=== PATIENT | female | born 1965 | race Caucasian/White ===

== ENCOUNTER 2020-07-13 23:59 | Observation (INO) | payer OTHER, MEDICARE ==
[~2020-07-13] VITALS: Ht 162.6 cm; Wt 117.7 kg
[2020-07-14 01:45] LABS: BASOPHILS ABSOLUTE AUTO 0.06 K/mm3 (0.00-0.23); BASOPHILS PERCENT AUTO 0 % (0-2); EOSINOPHILS ABSOLUTE AUTO 0.01 K/mm3 (0.00-0.68); EOSINOPHILS PERCENT AUTO 0 % (0-6); Hematocrit 40.9 % (33.0-51.0); Hemoglobin 13.5 g/dL (11.5-16.0); IMMATURE GRAN ABSOLUTE AUTO 0.31 K/mm3 (0.00-0.10); IMMATURE GRAN PERCENT AUTO 2 % (0-1); LYMPHOCYTES ABSOLUTE AUTO 4.49 K/mm3 (0.84-5.20); LYMPHOCYTES PERCENT AUTO 31 % (21-46); MONOCYTES ABSOLUTE AUTO 0.89 K/mm3 (0.16-1.47); MONOCYTES PERCENT AUTO 6 % (4-13); Mean Corpuscular HGB 30.8 pg (26.0-34.0); Mean Corpuscular Volume 93 fL (80-100); Mean Platelet Volume 10.7 fL (9.1-12.4); NEUTROPHILS ABSOLUTE AUTO 8.59 K/mm3 (1.96-9.15); NEUTROPHILS PERCENT AUTO 60 % (41-73); Platelet Count 232 K/mm3 (150-400); RDW Coefficient Variation 18.5 % (11.7-14.2); Red Blood Cell Count 4.38 M/mm3 (3.80-5.20); White Blood Cell Count 14.35 K/mm3 (4.00-11.30)
[2020-07-14 01:46] LABS: Alanine Aminotransfer (ALT/SGP 56 U/L (12-78); Albumin, Blood 2.5 g/dL (3.4-5.0); Albumin/Globulin Ratio 0.7 (0.8-1.8); Alk Phos 56 U/L (50-136); Anion Gap 4 mmol/L (6-16); Aspartate Aminotrans (AST/SGOT 46 U/L (12-37); Bilirubin, Total 0.4 mg/dL (0.1-1.0); Blood Urea Nitrogen 29 mg/dL (8-24); Bun/Creatinine Ratio 61.8 (12.0-20.0); CO2, Blood 33 mmol/L (21-32); Chloride, Blood 101 mmol/L (98-108); Creatinine, Blood 0.47 mg/dL (0.40-1.00); Ethanol (Alcohol), Blood, Med <3 mg/dL; Globulin, Blood 3.8 g/dL (2.2-4.0); Glomerular Filtration Rate >60 (60-); Glucose, Blood 127 mg/dL (70-99); Potassium, Blood 4.8 mmol/L (3.5-5.5); Salicylate <1.7 mg/dL (2.8-20.0); Sodium, Blood 138 mmol/L (136-145); Total Protein, Blood 6.3 g/dL (6.4-8.2)
[2020-07-14 01:48] LABS: Acetaminophen, Random <2.0 ug/mL (10.0-30.0)
[2020-07-14] MEDS ORDERED: CYCL10 PO (03:00)
[2020-07-14] MEDS ORDERED: GABA300 PO (03:01)
[2020-07-14] MEDS ORDERED: Hair, Skin & N1 EACH PO (03:01)
[2020-07-14] MEDS ORDERED: PYRI100 PO (03:01)
[2020-07-14] MEDS ORDERED: B-1100 MG PO (03:02)
[2020-07-14] MEDS ORDERED: TORSE20 PO (03:02)
[2020-07-14 04:09] LABS: Source, Urine Clean Catch
[2020-07-14 04:21] LABS: Appearance, Urine Clear (Clear); Bilirubin, Urine Neg (Neg); Blood, Urine 1+ (Neg); Color, Urine Yellow (P-Yellow); Glucose Qualitative, Urine Neg (Neg); Ketones, Urine Neg (Neg); Leukocyte Esterase, Urine 2+ (Neg); Nitrite, Urine Neg (Neg); Protein, Urine Neg (Neg); Urobilinogen, Urine 1+ (Normal)
[2020-07-14 04:22] LABS: Bacteria Few /hpf; Red Blood Cells, Urine 0-2 /hpf (0-2); Squamous Epithelial Cells Mod /hpf (Few)
[2020-07-14 04:23] LABS: Other Crystals Few /hpf
--- NOTE | 2020-07-14 04:26 | NUR ---
SHIFT ADMIT ASSESSMENT PT ARRIVED TO UNIT VIA GURNEY. SHE WAS SLID OVER TO ICU BED WITH NO ISSUES. PT IS VERY PLESANT AND COOPERATIVE WITH HER CARE. SHE IS ABLE TO ANSWER ALL THIS RN'S QUESTIONS TO ADMIT HER TO ICU. SHE SEEMS TO BE ANXIOUS ABOUT HER STAY AND THIS RN ANSWERED ALL HER QUESTIONS REGARDING HER CARE. VITALS ARE STABLE. PT IS ON 3L N/C WITH OXYGEN SATS AT 95%. SHE DOES SEEM SOB AT REST AND HER LUNGS SOUND TIGHT T/O. SHE STATES IT IS A LITTLE HARD TO BREATHE. WILL CON'T TO MONITOR. PT STOOD TO [facility] AND SATES SHE DOES NOT FEEL DIZZY BUT DOES FEEL WEAK AND SHAKY. TWO PERIPHERAL IV'S ESTABLISHED AT THIS TIME. PT TOLERATED IV START WELL. LIBRIUM WAS GIVEN AT THIS TIME. WILL GIVE ATIVAN NEEDED T/O REMAINDER OF SHIFT FOR ANXIETY. THIS RN CALLED PT'S BOYFRIEND REQESTED TO GIVE HIM AN UPDATE. PT WAS ORIENTED TO CALL LIGHT SYSTEM. BED IN LOW POSITION. WILL CON'T TO MONITOR AND KEEP PT SAFE T/O REMAINDER OF SHIFT.
[2020-07-14 04:27] LABS: U Amphetamine Screen Not Detected; U Barbituate Screen Not Detected; U Benzodiazapine Screen DETECTED; U Buprenorphine Screen Not Detected; U Cannabinoids Screen Not Detected; U Cocaine Screen Not Detected; U Methadone Screen Not Detected; U Methamphetamine Screen Not Detected; U Opiates Screen Not Detected; U Oxycodone Screen Not Detected; U Phencyclidine Screen Not Detected; U Propoxyphene Screen Not Detected
--- NOTE | 2020-07-14 05:37 | NUR ---
DR ANGELA MILLER HERE TO ASSESS PT. WILL IMPLEMENT ANY NEW ORDERS. ATIVAN IV WAS GIVEN JUST PRIOR TO HIS ARRIVAL. PT SATES SHE IS FEELING ANXIOUS.
[2020-07-14 08:00] LABS: BASOPHILS ABSOLUTE AUTO 0.08 K/mm3 (0.00-0.23); BASOPHILS PERCENT AUTO 1 % (0-2); EOSINOPHILS ABSOLUTE AUTO 0.03 K/mm3 (0.00-0.68); EOSINOPHILS PERCENT AUTO 0 % (0-6); Hematocrit 42.3 % (33.0-51.0); Hemoglobin 13.5 g/dL (11.5-16.0); IMMATURE GRAN ABSOLUTE AUTO 0.24 K/mm3 (0.00-0.10); IMMATURE GRAN PERCENT AUTO 2 % (0-1); LYMPHOCYTES ABSOLUTE AUTO 6.31 K/mm3 (0.84-5.20); LYMPHOCYTES PERCENT AUTO 46 % (21-46); MONOCYTES ABSOLUTE AUTO 0.82 K/mm3 (0.16-1.47); MONOCYTES PERCENT AUTO 6 % (4-13); Mean Corpuscular HGB 30.1 pg (26.0-34.0); Mean Corpuscular HGB Conc 31.9 g/dL (31.5-36.5); Mean Corpuscular Volume 94 fL (80-100); Mean Platelet Volume 10.1 fL (9.1-12.4); NEUTROPHILS ABSOLUTE AUTO 6.24 K/mm3 (1.96-9.15); NEUTROPHILS PERCENT AUTO 46 % (41-73); Platelet Count 217 K/mm3 (150-400); RDW Coefficient Variation 18.5 % (11.7-14.2); RDW Standard Deviation 62.8 fL (35.1-46.3); Red Blood Cell Count 4.49 M/mm3 (3.80-5.20); White Blood Cell Count 13.72 K/mm3 (4.00-11.30)
[2020-07-14 08:30] LABS: Alanine Aminotransfer (ALT/SGP 55 U/L (12-78); Albumin, Blood 2.5 g/dL (3.4-5.0); Albumin/Globulin Ratio 0.7 (0.8-1.8); Alk Phos 49 U/L (50-136); Anion Gap 7 mmol/L (6-16); Aspartate Aminotrans (AST/SGOT 33 U/L (12-37); Bilirubin, Total 0.3 mg/dL (0.1-1.0); Blood Urea Nitrogen 24 mg/dL (8-24); Bun/Creatinine Ratio 46.7 (12.0-20.0); CO2, Blood 32 mmol/L (21-32); Calcium, Blood 8.8 mg/dL (8.5-10.1); Chloride, Blood 104 mmol/L (98-108); Creatinine, Blood 0.51 mg/dL (0.40-1.00); Globulin, Blood 3.5 g/dL (2.2-4.0); Glomerular Filtration Rate >60 (60-); Glucose, Blood 131 mg/dL (70-99); Potassium, Blood 3.9 mmol/L (3.5-5.5); Sodium, Blood 143 mmol/L (136-145)
--- NOTE | 2020-07-14 09:00 | NUR ---
ASSESSMENT- PT AWAKE, ALERT, COOPERATIVE. C/O ANXIETY-RATES UP TO LEVEL 8 ON SCALE 0-10. CIWA 16, NOTICEABLE TREMORS AND C/O AUDITORY AND VISUAL HALLUCINATIONS. ABLE TO ANSWER QUESTIONS, EAT SMALL AMOUNT BREAKFAST. NSR, BP STABLE. DR. COLLINS HERE-UPDATED. NO N/V. UP TO COMMODE TO VOID. FALL PRECAUTIONS, REVIEWED NEED FOR USE OF CALL LIGHT, BED ALARM ON. STATES UNDERSTANDING. DYSPNEIC WITH ACTIVITY, STATES PRETTY NORMAL FOR HER. OXYGEN AT 3 L/MIN NC, LUNGS COARSE. IV BANANA BAG INFUSING VIA RIGHT WRIST-INTACT. PIV LEFT HAND DI. RX WITH ATIVAN WITH IMPROVEMENT OF ANXIETY-NOW DOZING. WILL MONITOR
--- NOTE | 2020-07-14 10:48 | NUR ---
PT WITH INCREASED CIWA, C/O ANXIETY, DISTRESSING HALLUCINATIONS. RX GIVEN-LIBRIUM AND ATIVAN. EXPLAINED PLAN OF CARE
--- NOTE | 2020-07-14 11:30 | NUR ---
ABLE TO REST, CALM, COOPERATIVE. POWER GLIDE BEING PLACED BY Morgan SYED RN
--- NOTE | 2020-07-14 12:17 | NUR ---
PT C/O INCREASED ANXIETY, MULTIPLE QUESTIONS REGARDING POSSIBLE SEIZURES, WITHDRAWAL. UP TO BEDSIDE COMMODE WITH STANDBY ASSIST, TOLERATED WELL, BREATHING EASIER. ATE 100% LUNCH. CIWA SCALE INCREASED TO 28 WITH TREMORS, REPORTS OF ANXIETY. RX GIVEN.
--- NOTE | 2020-07-14 14:24 | NUR ---
PT C/O ANXIETY, REQUESTING RX. VSS. LIBRIUM GIVEN. PICKING AT MONITOR LINES, EXPLAINED PLAN OF CARE, STATES UNDERSTANDING
--- NOTE | 2020-07-14 14:46 | NUR ---
UPDATE TO DR. PALMA-PT CONTINUES TO COMPLAIN OF CHEST PAIN, UNCHANGED TODAY. CANNOT HAVE NITRATES FOR 24 HOURS BEFORE LOLA SCAN, NTG PASTE OFF. CAN HAVE NTG SL IF NEEDED-BUT NOT FOR 4 HOURS BEFORE TEST. PT STATES NTG DOES NOT DECREASE ANY PAIN. UP TO TOILET WITHOUT PROBLEMS. VSS. SKIN W/D, PT STATES SHE IS VERY QUIET REGARDING HER DISCOMFORT. REFUSES AM CARES
--- NOTE | 2020-07-14 16:30 | NUR ---
PT HAS BEEN ABLE TO REST AT INTERVALS. WHEN AWAKE, C/O ANXIETY, WITHDRAWALS, HALLUCINATIONS. REVIEWED PLAN OF CARE WITH PT. RESTING NOW
--- NOTE | 2020-07-14 18:00 | NUR ---
ATE 100% DINNER. VSS. CALM, COOPERATIVE. CONTINUE TO MONITOR
--- NOTE | 2020-07-14 19:53 | NUR ---
ASSUMPTION OF CARE PT RESTING IN BED, AROUSES TO VERBAL STIMULI, ORIENTED TO SELF, YEAR AND FOLLOWING DIRECTIONS, WHEN ASKED ABOUT LOCATION PT STS SHE IS "IN HELL" BUT DOES NOT ELABORATE. PT ON 2L PER NC, MONITOR SHOWS SINUS RHYTHM WITH HR 80'S, MILD HTN NOTED. PT QUICKLY FALLS ASLEEP WHEN STAFF IS NOT IN ROOM. REPORT CALLED TO TANIA COUNTER PERSON.
--- NOTE | 2020-07-14 20:30 | NUR ---
PT TRANSPORTED VIA HOSPITAL BED TO PCU 10
--- NOTE | 2020-07-14 20:43 | NUR ---
ASSUMED CARE RECEIVED REPORT FROM FREDY RN AND PT TRANSFERED FROM ICU TO PCU 10; PT A&O X4; STOOD AND TRANSFERED SELF TO BED; PT REQUESTING SNACKS; NO DISTRESS NOTED; DENIES CHEST PAIN; SANDWICH AND PO FLUIDS BROUGHT TO PT; PT ORIENTED TO ROOM AND CALL LIGHT SYSTEM; EDUCATION PROVIDED FOR FRP; SKID FREE SOCKS PLACED; BED ALARM ON; PT STATES SHE IS SHAKEY AND FEELING AGGITATED; TELE MONITOR PLACED; PT IS IN NSR HR 87 NOTED; CALL LIGHT IN PLACE; BED IN LOWEST POSITION; BED ALARM ON.
--- NOTE | 2020-07-15 04:59 | NUR ---
SHIFT SUMMARY PT A&O X 2-3; PT REQUESTING ATIVAN FREQUENTLY; PT REPORT CHRONIC ALCOHOL AND NICOTINE ADDICTIONS; DENIES CHEST PAIN; VSS; NSR NOTED ON TELE; O2 SATS >93 ON 2L NC; WEARS BIPAP AFTER ENCOURAGEMENT WHEN SLEEPING; ANSWERS APPROPRIATELY; SBA TO BSC; ABLE TO PULL SELF UP IN THE BED; EDUCATED ON PT SAFETY; CALL LIGHT IN REACH; BED IN LOWEST POSITION; BED ALARM ON; WILL CONTINUE TO MONITOR CLOSELY UNTIL HAND OFF TO DAY SHIFT RN.
[2020-07-15 05:28] LABS: Anion Gap 4 mmol/L (6-16); Blood Urea Nitrogen 24 mg/dL (8-24); CO2, Blood 32 mmol/L (21-32); Calcium, Blood 8.6 mg/dL (8.5-10.1); Chloride, Blood 105 mmol/L (98-108); Creatinine, Blood 0.57 mg/dL (0.40-1.00); Glomerular Filtration Rate >60 (60-); Glucose, Blood 128 mg/dL (70-99); Magnesium, Blood 1.9 mg/dL (1.6-2.4); Phosphorus, Blood 3.5 mg/dL (2.5-4.9); Potassium, Blood 4.6 mmol/L (3.5-5.5); Sodium, Blood 141 mmol/L (136-145)
--- NOTE | 2020-07-15 07:38 | NUR ---
ASSUMED PATIENT CARE. PATIENT RESTING COMFORTABLY IN BED, CONVERSING WITH NURSING STAFF. NO SIGNS OF ACUTE DISTRESS, WCTM.
--- NOTE | 2020-07-15 14:18 | NUR ---
PATIENT PROVIDED DISCHARGE INFO REGARDING REASONS TO RETURN TO THE HOSPITAL AND FOLLOW UP PLANS. PATIENT ENDORSED UNDERSTANDING, NO SIGNS OF ACUTE DISTRESS NTOED.
== END 2020-07-15 14:20 | disposition home or self-care (01) ==
LOC: ER 23:59 → ICUE 07-14 00:01 → ICUW 07-14 00:01 → ICUE 07-14 01:37 → ICUW 07-14 01:37 → ER 07-14 01:37 → ICUE 07-14 03:20 → ICUW 07-14 03:20 → ICUE 07-14 04:07 → PCU 07-14 20:31
PROVIDERS: Emergency Medicine; Internal Medicine; ADMIT Internal Medicine
DX: F10.239 Alcohol dependence with withdrawal, unspecified (principal); Y90.0 Blood alcohol level of less than 20 mg/100 ml; I11.0 Hypertensive heart disease with heart failure; I50.9 Heart failure, unspecified; J44.9 Chronic obstructive pulmonary disease, unspecified; E11.9 Type 2 diabetes mellitus without complications; Z79.899 Other long term (current) drug therapy; F17.210 Nicotine dependence, cigarettes, uncomplicated; R19.7 Diarrhea, unspecified
CPT/HCPCS: 36415; 80048; 80053; 81001; 81025; 82947; 83735; 84100; 85025; 87086; 94640; 94660; 94762; 96365; 96366; 96372; 96374; 96375; 96376; 99285-25; A9270-GY; C1751; G0378; G0480; J1650; J2060; J2405; J3411; J3475; J7042

== ENCOUNTER 2022-05-25 17:55 | Inpatient (IN) | payer OTHER ==
[~2022-05-25] VITALS: Ht 160 cm; Wt 99.8 kg
[~2022-05-25 17:55] MED LIST: B-1100 MG PO; CYCL10 PO; GABA300 PO; Hair, Skin & N1 EACH PO; PYRI100 PO; TORSE20 PO
[2022-05-25] MEDS ORDERED: QUETIAPINE FUMA PO (20:28)
[2022-05-25] MEDS ORDERED: ARIP30 PO (20:32)
[2022-05-25 21:53] LABS: BASOPHILS ABSOLUTE AUTO 0.08 K/mm3 (0.00-0.23); BASOPHILS PERCENT AUTO 1 % (0-2); EOSINOPHILS ABSOLUTE AUTO 0.01 K/mm3 (0.00-0.68); EOSINOPHILS PERCENT AUTO 0 % (0-6); Hematocrit 40.8 % (33.0-51.0); Hemoglobin 13.9 g/dL (11.5-16.0); IMMATURE GRAN PERCENT AUTO 1 % (0-1); LYMPHOCYTES PERCENT AUTO 21 % (21-46); MONOCYTES ABSOLUTE AUTO 1.03 K/mm3 (0.16-1.47); MONOCYTES PERCENT AUTO 6 % (4-13); Mean Corpuscular HGB 30.5 pg (26.0-34.0); Mean Corpuscular HGB Conc 34.1 g/dL (31.5-36.5); Mean Corpuscular Volume 90 fL (80-100); Mean Platelet Volume 10.1 fL (9.1-12.4); NEUTROPHILS ABSOLUTE AUTO 11.82 K/mm3 (1.96-9.15); NEUTROPHILS PERCENT AUTO 72 % (41-73); Platelet Count 297 K/mm3 (150-400); RDW Coefficient Variation 14.8 % (11.7-14.2); RDW Standard Deviation 48.6 fL (35.1-46.3); Red Blood Cell Count 4.56 M/mm3 (3.80-5.20); White Blood Cell Count 16.44 K/mm3 (4.00-11.30)
[2022-05-25 21:57] LABS: Influenza A, PCR NEGATIVE (NEGATIVE); Influenza B, PCR NEGATIVE (NEGATIVE); Resp Syncytial Virus, PCR NEGATIVE (NEGATIVE); SARS-Cov-2 (COVID-19) PCR, MMC NEGATIVE (NEGATIVE)
[2022-05-25 22:15] LABS: Ethanol (Alcohol), Blood, Med <3 mg/dL; Salicylate 2.9 mg/dL (2.8-20.0); Thyroxine (T4) 8.2 ug/dL (4.8-13.9)
[2022-05-25 22:25] LABS: Alanine Aminotransfer (ALT/SGP 30 U/L (12-78); Albumin, Blood 3.2 g/dL (3.4-5.0); Albumin/Globulin Ratio 0.8 (0.8-1.8); Alk Phos 69 U/L (50-136); Anion Gap 9 mmol/L (6-16); Aspartate Aminotrans (AST/SGOT 32 U/L (12-37); Bilirubin, Total 0.8 mg/dL (0.1-1.0); Blood Urea Nitrogen 9 mg/dL (8-24); Bun/Creatinine Ratio 17.9 (12.0-20.0); CO2, Blood 26 mmol/L (21-32); Calcium, Blood 9.1 mg/dL (8.5-10.1); Chloride, Blood 104 mmol/L (98-108); Globulin, Blood 3.8 g/dL (2.2-4.0); Glomerular Filtration Rate 110 (60-); Glucose, Blood 103 mg/dL (70-99); Potassium, Blood 3.1 mmol/L (3.5-5.5); Sodium, Blood 139 mmol/L (136-145)
[2022-05-25 22:26] LABS: Acetaminophen, Random <2.0 ug/mL (10.0-30.0)
[2022-05-25 23:30] LABS: Source, Urine Clean Catch
[2022-05-25 23:32] LABS: Bilirubin, Urine Neg (Neg); Blood, Urine 2+ (Neg); Glucose Qualitative, Urine Neg (Neg); Ketones, Urine 3+ (Neg); Leukocyte Esterase, Urine 3+ (Neg); Nitrite, Urine Neg (Neg); Protein, Urine 2+ (Neg); Specific Gravity, Urine 1.025 (1.003-1.022); Urobilinogen, Urine NORM (Normal)
[2022-05-25 23:35] LABS: Appearance, Urine Hazy (Clear); Color, Urine Amber (P-Yellow)
[2022-05-25 23:38] LABS: White Blood Cells, Urine 25-50 /hpf (0-5)
[2022-05-25 23:39] LABS: Amorphous Light (0-Heavy); Bacteria Many /hpf; Hyaline Casts 25-50 /lpf (0-2); Mucus Mod (0-Heavy); Squamous Epithelial Cells Few /hpf (Few)
[2022-05-25 23:44] LABS: U Amphetamine Screen DETECTED; U Barbituate Screen Not Detected; U Benzodiazapine Screen DETECTED; U Buprenorphine Screen Not Detected; U Cannabinoids Screen Not Detected; U Cocaine Screen Not Detected; U Methadone Screen Not Detected; U Methamphetamine Screen DETECTED; U Opiates Screen Not Detected; U Oxycodone Screen Not Detected; U Phencyclidine Screen Not Detected; U Propoxyphene Screen Not Detected
[2022-05-26 06:22] LABS: Bun/Creatinine Ratio 16.7 (12.0-20.0); Calcium, Blood 8.3 mg/dL (8.5-10.1); Creatinine, Blood 0.42 mg/dL (0.40-1.00); Potassium, Blood 3.1 mmol/L (3.5-5.5)
--- NOTE | 2022-05-26 10:16 | NUR ---
LATE ENTRY/ER ADMIT 0815: RECEIVED REPORT FROM GABRIELA RAMON. 0900: RECEIVED PT TO ROOM 353 WITH SITTER AND 2 SECURITY GUARDS PRESENT. PLACED IN BED AND MADE COMFORTABLE, ORIENTED TO ROOM AND UNIT ROUTINE. PT IS ON 2 MD HOLD AND UNDER SI PRECAUTIONS. ROOM WAS MITIGATED FOR SI PRECAUTIONS BY [facility] YENNY JACKSON. PT IS A&O X 4. IS REQUESTING A PHONE IN THE ROOM TO CALL HER BORJA TO CANCEL HER CREDIT CARD & DEBIT CARD TO PROTECT HER FINANCES. SHE STATES SHE HAS A LARGE INHERITANCE SHE WANTS TO PROTECT FROM OTHERS TRYING TO STEAL IT. WILL REMAIN IN THE ROOM WITH HER SHE MAKES THE CALLS AND WILL THEN REMOVE THE PHONE. PT IS ON CAMERA AND WILL HAVE A SITTER 29/04.
--- NOTE | 2022-05-27 05:17 | NUR ---
SHIFT SUMMARY: PATIENT HAS BEEN VERY LETHARGIC THIS SHIFT- AWOKEN TO TAKE 2100 MEDICATIONS AT THAT TIME WAS ABLE TO ANSWER QUESTIONS APPROPRIATELY- DECLINED SUICIDAL IDEATIONS AT THAT TIME. SHORTLY AFTER WAKING TO TAKE SCHEDULED 2100 MEDICATIONS PATIENT BEGAN ASKING FOR PRN ATIVAN. ATIVAN WAS NOT ADMINISTERED AT THAT TIME DUE TO PATIENTS DROWSINESS AND FALLING ASLEEP DURING CONVERSATION. PATIENT HAS SLEPT THROUGHOUT THE NIGHT, NO REPORTS OF PAIN OR DISCOMFORT. CAMERA MONITORING CONTINUED, SITTER AT BEDSIDE. BED IN LOW POSITION, CALL MOREIRA AND BELONGINGS IN REACH. STANDBY ASSIST WITH AMBULATION, PT ABLE TO MAKE NEEDS KNOWN. -58 ANGELA COBB CONTACTED TO CLARIFY IF AWARE PATIENT HAS HAD TWO POSITIVE HCG URINARY TEST RESULTS. - NOTES DO NOT SPECIFY OR EXPAND ON THIS LAB RESULT. CLARIFIED IF WANTED A HCG BLOOD SERUM COMPLETED- APPROVED HCG LAB TEST FOR THIS MORNING.
[2022-05-27 09:54] LABS: BASOPHILS ABSOLUTE AUTO 0.08 K/mm3 (0.00-0.23); BASOPHILS PERCENT AUTO 1 % (0-2); EOSINOPHILS ABSOLUTE AUTO 0.34 K/mm3 (0.00-0.68); EOSINOPHILS PERCENT AUTO 4 % (0-6); Hematocrit 41.6 % (33.0-51.0); Hemoglobin 13.5 g/dL (11.5-16.0); IMMATURE GRAN ABSOLUTE AUTO 0.04 K/mm3 (0.00-0.10); IMMATURE GRAN PERCENT AUTO 0 % (0-1); LYMPHOCYTES ABSOLUTE AUTO 2.84 K/mm3 (0.84-5.20); LYMPHOCYTES PERCENT AUTO 32 % (21-46); MONOCYTES ABSOLUTE AUTO 0.58 K/mm3 (0.16-1.47); MONOCYTES PERCENT AUTO 6 % (4-13); Mean Corpuscular HGB 30.4 pg (26.0-34.0); Mean Corpuscular HGB Conc 32.5 g/dL (31.5-36.5); Mean Corpuscular Volume 94 fL (80-100); Mean Platelet Volume 10.3 fL (9.1-12.4); NEUTROPHILS ABSOLUTE AUTO 5.13 K/mm3 (1.96-9.15); NEUTROPHILS PERCENT AUTO 57 % (41-73); Platelet Count 232 K/mm3 (150-400); RDW Coefficient Variation 15.2 % (11.7-14.2); RDW Standard Deviation 52.2 fL (35.1-46.3); Red Blood Cell Count 4.44 M/mm3 (3.80-5.20); White Blood Cell Count 9.01 K/mm3 (4.00-11.30)
[2022-05-27 10:03] LABS: Calcium, Blood 8.5 mg/dL (8.5-10.1); Creatinine, Blood 0.5 mg/dL (0.40-1.00); Potassium, Blood 3.4 mmol/L (3.5-5.5)
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
--- NOTE | 2022-05-27 18:31 | NUR ---
PT REQUEST PT REQUESTS THAT SHE HAVE NO VISITIRS & NO PHONE CALLS. CHARGE NURSE NOTIFIED.
--- NOTE | 2022-05-27 19:42 | NUR ---
NURSE NOTE: JARED COBB NOTIFIED OF PATIENTS INCREASING ANXIETY, PARANOIA, AUDITORY AND VISUAL HALLUCINATIONS. PT REPORTING "SNIPERS ARE TRYING TO KILL ME, PEOPLE ARE IN THE MUNIZ AND IN THE CEILING". GAVE TELEPHONE APPROVAL TO ADMINISTER 2100 DOSE OF SEROQUEL NOW AND ORDER ONE TIME DOSE OF TORADOL 15MG IV FOR CONTINUED KNEE PAIN.
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
[2022-05-28 05:42] LABS: Bun/Creatinine Ratio 15.9 (12.0-20.0); Calcium, Blood 8.8 mg/dL (8.5-10.1); Creatinine, Blood 0.63 mg/dL (0.40-1.00); Potassium, Blood 3.5 mmol/L (3.5-5.5)
--- NOTE | 2022-05-28 18:31 | NUR ---
PATIENT IS ALERT AND ORIENTED BUT PARANOID AND DELUSIONAL. SHE THINKS THE PHONE IS BUGGED. SHE THINKS HER PERSONAL BELONGINGS IN THE CLOSET ARE BUGGED. SHE HAS BEEN ANXIOUS ALL SHIFT, MEDICATED PER EMAR. SHE HAS BEEN FIXATED ON GETTING IV ATIVAN VS PO. WAITING FOR PLACEMENT TO PSYCH UNIT. DENIES SI. WILL CONTINUE TO MONITOR
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
--- NOTE | 2022-05-28 22:03 | NUR ---
PT requests personal belongings bag be removed from locked closet that she thinks a tracking device is present in it. Removed belongs bag to hallway to decrease anxiety.
--- NOTE | 2022-05-29 01:14 | NUR ---
PT slept a few hours after taking seroquel then becomes aggitated by personal belonging being kept in locked closet in room . Now she doesn't want to return to room due to remote camera monitoring & she says it roselia be easy to track her down & kill her. Reviewed PT's chart which indiscates she had $6000 mirza on her person that is in security. She expresses she wants some vodka reporedly she was drinking a 5th a day. She has asked to call the [facility] about a bed & despite explaining the dc planners are working on the plan for dc she continues to want to call.
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
== END 2022-05-29 13:22 | DRG 872 ==
LOC: ER 17:55 → ERHOLD 17:56 → MEDS 17:56 → ERHOLD 17:56 → MEDS 17:56
PROVIDERS: Family Medicine; Physician Assistant; ADMIT Student in an Organized Health Care Education/Training Program
DX: A41.9 Sepsis, unspecified organism (principal); R45.851 Suicidal ideations; F23 Brief psychotic disorder; N39.0 Urinary tract infection, site not specified; F15.10 Other stimulant abuse, uncomplicated; R07.89 Other chest pain; F31.9 Bipolar disorder, unspecified; R89.1 Abnormal level of hormones in specimens from other organs, systems and tissues; F10.20 Alcohol dependence, uncomplicated; J44.9 Chronic obstructive pulmonary disease, unspecified; F17.210 Nicotine dependence, cigarettes, uncomplicated; E87.6 Hypokalemia; I11.0 Hypertensive heart disease with heart failure; G47.30 Sleep apnea, unspecified; I50.9 Heart failure, unspecified; E11.9 Type 2 diabetes mellitus without complications; F22 Delusional disorders; Z20.822 Contact with and (suspected) exposure to COVID-19; M25.561 Pain in right knee; M25.562 Pain in left knee; Z79.899 Other long term (current) drug therapy; Z90.49 Acquired absence of other specified parts of digestive tract; Z91.14 Patient's other noncompliance with medication regimen; Z79.01 Long term (current) use of anticoagulants
CPT/HCPCS: 0241U; 36415; 71045; 80048; 80053; 81001; 81025; 83605; 84436; 84484; 84702; 85025; 87040; 87086; 93005; 93010; 96361; 96372; 96374; 96375; 96376; 99285-25; A9270; C1751; G0378; G0480; J0696; J1650; J1790; J1885; J2060; J7030; J7120